=== PATIENT | male | born 1950 | race Caucasian/White ===

== ENCOUNTER 2016-08-11 09:28 | Emergency (ER) ==
[2016-08-11 09:38] VITALS: BP 148/85; TEMP 98.2; BMI 39.2
--- NOTE | 2016-08-11 09:48 | ED.PDOC ---
General ED Provider: Dr. NIA LAWRENCE JR Chief Complaint: Shoulder Pain/Injury Stated Complaint: Pain rt shoulder/ scapula. Had been crawling on hands/ knees 1 1/2 weeks ago. Does not know if related to current pain.[End]3-4 DAYS 98.2 55 95% 148/85 12/04 Time Seen by Physician: 09:48 Mode of Arrival: Walk-In Information Source: Patient Exam Limitations: No limitations Primary Care Provider: XENIA MCCORD Nursing and Triage Documentation Reviewed and Agree: No Review of Systems - Review Of Systems Constitutional: Reports: No symptoms Eyes: Reports: No symptoms Ears, Nose, Mouth, Throat: Reports: No symptoms Respiratory: Reports: No symptoms Cardiac: Reports: No symptoms GI: Reports: No symptoms : Reports: No symptoms Musculoskeletal: Reports: Joint pain, Muscle pain, Neck pain Skin: Reports: No symptoms Neurological: Reports: No symptoms Endocrine: Reports: No symptoms Hematologic/Lymphatic: Reports: No symptoms All Other Systems: Reviewed and Negative Past Medical History - Past Medical History Endocrine: Reports: DM 2, Hypothyroid, Dyslipidemia Cardiovascular: Reports: Hypertension Respiratory: Reports: None, Unknown Hematological: Reports: None, Unknown Gastrointestinal: Reports: Unknown Genitourinary: Reports: None, Unknown Neuro/Psych: Reports: Unknown Musculoskeletal: Reports: Arthritis, Unknown Cancer: Reports: None, Unknown - Surgical History General Surgical History: Reports: Cholecystectomy, Hernia Repair (UMBILICAL H ) , Unknown - Family History Family History: Reports: Unknown - Social History Smoking Status: Never smoker Hx Substance Use: No Alcohol Screening: None Physical Exam - Physical Exam Appearance: Well-appearing, Obese Pain Distress: Moderate Neck: Supple Respiratory: Airway patent Musculoskeletal: Normal strength, ROM intact, Limited strength (pain with ROM right shoulder periscapular tenderness) Skin: Warm, Dry, Normal color Neurological: Sensation intact, Motor intact, Reflexes intact, Cranial nerves intact, Alert, Oriented Psychiatric: Affect appropriate, Mood appropriate Critical Care Note - Critical Care Note Total Time (mins): 0 Course - Course Orders, Labs, Meds: Orders Category Date Time Status Ketorolac Tromethamine [Toradol] MEDS 08/11/16 09:53 Discontinued 60 mg IM ONCE STA Orphenadrine Citrate [Norflex] MEDS 08/11/16 09:53 Discontinued 60 mg IM ONCE STA CT CERVICAL SPINE W/O CONTRAST Stat RADS 08/11/16 09:47 Completed SHOULDER, RIGHT MIN 2V Stat RADS 08/11/16 09:53 Completed Medications Discontinued Medications Generic Name Dose Route Start Last Admin Trade Name Luis Carlosq PRN Reason Stop Dose Admin Ketorolac Tromethamine 60 mg 08/11/16 09:53 08/11/16 10:19 Toradol IM 08/11/16 09:54 60 mg ONCE STA Administration Orphenadrine Citrate 60 mg 08/11/16 09:53 08/11/16 10:23 Norflex IM 08/11/16 09:54 60 mg ONCE STA Administration Vital Signs: Temp Pulse Resp BP Pulse Ox 08/11/16 09:29 98.2 F 55 L 148 H 148/85 H 95 Departure - Departure Time of Disposition: 11:47 Disposition: HOME SELF-CARE Discharge Problem: Injury of shoulder region Instructions: Shoulder Sprain (ED) Condition: Good Pt referred to PMD for follow-up: Yes Additional Instructions: naproxen for pain norflex for spasms ice 20 minutes three times a day gentle range of motion twice a day recheck PDM one to two weeks discuss xrays return if fever over 101.0 return if worsening Prescriptions: Naproxen [Naprosyn] 500 mg PO Q12HR PRN #30 tablet PRN Reason: PAIN Orphenadrine Citrate [Norflex] 100 mg PO Q12H #30 tablet.er Allergies/Adverse Reactions: Allergies codeine Adverse Reaction (Verified 08/11/16 09:39) Home Medications: Ambulatory Orders Naproxen [Naprosyn] 500 mg PO Q12HR PRN #30 tablet 08/11/16 Orphenadrine Citrate [Norflex] 100 mg PO Q12H #30 tablet.er 08/11/16
[2016-08-11] MEDS ORDERED: TORADOL IM STA (09:53)
[2016-08-11] MEDS ORDERED: NORFLEX IM STA (09:53)
--- NOTE | 2016-08-11 10:48 | DI ---
EXAM: Three views of the right shoulder. History: Right shoulder pain. Findings: No acute fracture or dislocation. Moderate narrowing of the right AC joint with small os teophytes. The glenohumeral joint is intact. Impression: No acute osseous abnormality. Moderate arthritis of the right AC joint.
--- NOTE | 2016-08-11 11:06 | CT ---
EXAM: CT of the cervical spine without contrast History: Neck pain radiating to the right arm and shoulder. Technique: Multiplanar CT images through the cervical spine were obtained without the administratio n of IV contrast Findings: The visualized upper lungs are free of consolidation. The visualized airway remains tony nt. Noise artifact from body habitus does somewhat limit evaluation. No fractures identified. No sublu xation. Mild to moderate multilevel degenerative disc space narrowing with osteophytes. C2-3: No significant bony central canal stenosis or bony neural foraminal narrowing. C3-4: No significant bony central canal stenosis. Mild to moderate right and mild left bony neural foraminal narrowing secondary to uncovertebral and facet hypertrophy. C4-5: No significant bony central canal stenosis. Severe left and mild right bony neural foraminal narrowing secondary to uncovertebral and facet hypertrophy. C5-6: No significant bony central canal stenosis. Moderate right and mild left bony neural foramin al narrowing secondary to uncovertebral and facet hypertrophy. C6-7: Posterior disc osteophyte complex with mild to moderate bony central canal stenosis. Severe r ight and moderate to severe left bony neural foraminal narrowing secondary to uncovertebral and face t hypertrophy. Impression: 1. No acute osseous abnormality of the cervical spine. 2. Level by level analysis as detailed above. If symptoms persist, recommend further evaluation wi MRI.
== END 2016-08-11 12:25 | disposition home or self-care (01) ==
LOC: ED 09:28
DX: S43.401A Unspecified sprain of right shoulder joint, initial encounter (principal); M54.2 Cervicalgia; X50.1XXA Overexertion from prolonged static or awkward postures, initial encounter
CPT/HCPCS: 96372; 99282

== ENCOUNTER 2017-08-18 06:42 | Day surgery (SDC) ==
[2017-08-18] MEDS ORDERED: DIPRIVAN 20 ML VIAL IVP ONE (08:49)
[2017-08-18] MEDS ORDERED: VERSED ONE (08:49)
[2017-08-18 12:52] VITALS: BP 118/67; TEMP 98.6
--- NOTE | 2017-08-19 10:53 | OP ---
INDICATIONS FOR PROCEDURE: 67-year-old gentleman presents for a screening colonoscopy exam. He has a family history of colon cancer involving a brother and a sister both in their 60s. MEDICATIONS: SEE ANESTHESIA NOTES. PROCEDURE: COLONOSCOPY WITH SNARE POLYPECTOMY. REPORT: The risks, benefits, alternatives and limitations were discussed in detail with the patient. Informed consent was obtained. After adequate sedation was achieved, a digital rectal exam revealed good tone, no masses. The colonoscope was introduced into the rectum and advanced under direct visual guidance to the cecum. The cecum was identified by the appendiceal orifice and IC valve. In the cecum there is a diminutive 4 mm polyp that I destroyed by snare technique. There was also a diminutive 4 mm polyp in the proximal mid ascending colon that I destroyed by snare technique. I then slowly withdrew the scope in a circumferential manner examining the mucosa quite carefully. I looked in the proximal and distal sides of folds and flexures as best as possible. I was able to retroflex the scope in the right colon and left colon to increase visualization. In the very proximal descending colon there was a 5 mm sessile polyp that I removed by snare technique. I noted a few diverticula in the sigmoid colon. No other abnormalities were noted including on retroflex view of the anal canal. The prep was good. The withdrawal time was 16 minutes and 6 seconds. The patient tolerated the procedure well with stable vital signs and pulse oximetry throughout. IMPRESSION: 1. THREE (3) POLYPS REMOVED OR DESTROYED ABOVE 2. SCANT SIGMOID DIVERTICULOSIS RECOMMENDATIONS: 1. High fiber diet. 2. Office visit as needed. 3. Given the finding of these polyps and his family history, I recommended a surveillance examination again in 3 years, sooner if there are any signs or symptoms to indicate otherwise. CC: DR. XENIA HIGGINS
== END 2017-08-18 09:50 | disposition home or self-care (01) ==
LOC: SURG 06:42
PROVIDERS: ATTEND Internal Medicine Gastroenterology
DX: Z12.11 Encounter for screening for malignant neoplasm of colon (principal); D12.4 Benign neoplasm of descending colon; K63.5 Polyp of colon; K57.30 Diverticulosis of large intestine without perforation or abscess without bleeding; Z80.0 Family history of malignant neoplasm of digestive organs

== ENCOUNTER 2017-10-20 08:23 | Outpatient (CLI) | payer OTHER | END 2017-10-20 08:24 | disposition home or self-care (01) | LOC: LAB 08:23 | PROVIDERS: ATTEND Internal Medicine Hematology & Oncology | DX: D72.819 Decreased white blood cell count, unspecified (principal) | CPT/HCPCS: 36415; 85025 ==

== ENCOUNTER 2017-12-15 08:06 | Outpatient (CLI) | END 2017-12-15 08:07 | disposition home or self-care (01) | LOC: LAB 08:06 | PROVIDERS: ATTEND Internal Medicine Hematology & Oncology | DX: D72.819 Decreased white blood cell count, unspecified (principal) | CPT/HCPCS: 36415; 85025 ==

== ENCOUNTER 2017-12-18 09:14 | Outpatient (CLI) | END 2017-12-18 09:15 | disposition home or self-care (01) | LOC: LAB 09:14 | PROVIDERS: ATTEND Family Medicine | DX: E11.9 Type 2 diabetes mellitus without complications (principal); I10 Essential (primary) hypertension | CPT/HCPCS: 36415; 80053; 80061; 82043; 83036 ==

== ENCOUNTER 2018-02-08 09:48 | Outpatient (CLI) | END 2018-02-08 09:49 | disposition home or self-care (01) | LOC: LAB 09:48 | PROVIDERS: ATTEND Internal Medicine Hematology & Oncology | DX: D72.819 Decreased white blood cell count, unspecified (principal) | CPT/HCPCS: 36415; 85025 ==

== ENCOUNTER 2018-02-25 08:28 | Outpatient (CLI) | END 2018-02-25 08:29 | disposition home or self-care (01) | LOC: LAB 08:28 | PROVIDERS: ATTEND Internal Medicine Hematology & Oncology | DX: D72.819 Decreased white blood cell count, unspecified (principal) | CPT/HCPCS: 36415; 80053 ==

== ENCOUNTER 2018-04-29 07:53 | Outpatient (CLI) | END 2018-04-29 07:54 | disposition home or self-care (01) | LOC: LAB 07:53 | PROVIDERS: ATTEND Internal Medicine Hematology & Oncology | DX: D72.819 Decreased white blood cell count, unspecified (principal); D64.9 Anemia, unspecified | CPT/HCPCS: 36415; 82272; 85025 ==

== ENCOUNTER 2018-06-25 10:00 | Outpatient (CLI) | payer OTHER | END 2018-06-25 10:01 | disposition home or self-care (01) | LOC: LAB 10:00 | PROVIDERS: ATTEND Internal Medicine Hematology & Oncology | DX: D72.819 Decreased white blood cell count, unspecified (principal); D64.9 Anemia, unspecified | CPT/HCPCS: 36415; 85025 ==

== ENCOUNTER 2018-08-19 09:33 | Outpatient (CLI) | END 2018-08-19 09:34 | disposition home or self-care (01) | LOC: LAB 09:33 | PROVIDERS: ATTEND Internal Medicine Hematology & Oncology | DX: D72.819 Decreased white blood cell count, unspecified (principal); D64.9 Anemia, unspecified | CPT/HCPCS: 36415; 80053; 85025 ==

== ENCOUNTER 2018-08-26 10:03 | Outpatient (CLI) | payer OTHER | END 2018-08-26 10:04 | disposition home or self-care (01) | LOC: LAB 10:03 | PROVIDERS: ATTEND Internal Medicine Hematology & Oncology | DX: D72.819 Decreased white blood cell count, unspecified (principal); D64.9 Anemia, unspecified | CPT/HCPCS: 36415; 80053; 85025 ==

== ENCOUNTER 2018-12-20 09:12 | Outpatient (CLI) ==
--- NOTE | 2018-12-20 09:48 | CT ---
EXAM: CT of the head without contrast History: Headache. Technique: Multiplanar CT images through the head were obtained without the administration of IV con trast Findings: The visualized paranasal sinuses and mastoid air cells are clear in general. No acute vidal varial abnormalities. Intracranially there is mild frontal atrophy. No midline shift and no hydrocephalus. No acute intra cranial hemorrhage or abnormal extraaxial fluid collections. Impression: 1. No acute intracranial process. 2. Mild frontal atrophy
--- NOTE | 2018-12-20 09:55 | DI ---
EXAM: Seven views of the cervical spine. History: Headache. Findings: No acute fracture or subluxation of the cervical spine. No prevertebral soft tissue swell ing. Predental space is not widened. Mild to moderate multilevel disc space narrowing with large an terior osteophytes at C2-3 and C3-4. The oblique images demonstrate multilevel bilateral bony neural foraminal narrowing secondary to uncovertebral and facet hypertrophy and most significant on the rig ht at C4-5 and C5-6 and on the left at C5-6. Impression: 1. No acute osseous abnormality of the cervical spine. 2. Degenerative changes
== END 2018-12-20 09:13 | disposition home or self-care (01) ==
LOC: RAD 09:12
PROVIDERS: ATTEND Family Medicine
DX: G44.209 Tension-type headache, unspecified, not intractable (principal)